=== PATIENT | female | born 1980 | race Caucasian/White ===

== ENCOUNTER 2019-04-21 09:08 | Emergency (ER) | payer BC, OTHER ==
[2019-04-21 10:28] VITALS: BP 107/78
--- NOTE | 2019-04-21 10:31 | UC ---
Dental HPI - HPI Summary HPI Summary: 39 y/o female presents to the urgent care c/o Upper left side of mouth tooth pain since yesterday. Pt reports Hx of root canals in the same side. She has a gold crown on that side w/ mild swelling. Pt states pain is 8/10 w/ chewing. She has been taking Ibuprofen 600mg PO, Last dose taken last night. She also has taken Gabapentin for her Neuropathy to alleviate pain. Pt has appt w/ [facility] in 3 weeks. Pt denies fever, REYNOSO, trismus, SOB, chest pain,abdominal pain, N/V/d. - History of Current Complaint Chief Complaint: UCGI Stated Complaint: ORAL COMPLAINT Time Seen by Provider: 04/21/19 10:15 Hx Obtained From: Patient Hx Last Menstrual Period: 2016 Onset/Duration: Gradual Onset - left upper side dental pain, Lasting Days - 1 day, Still Present, Worse Since - this morning Severity: Moderate Pain Intensity: 8 Pain Scale Used: 0-10 Numeric Aggravating Factor(s): Chewing Alleviating Factor(s): OTC Meds - Ibuprofen 60mg , last dose taken last night Related History: Previous Dental Care on Same Tooth - Allergies/Home Medications Allergies/Adverse Reactions: Allergies Allergy/AdvReac Type Severity Reaction Status Date / Time letrozole Allergy Severe migraine Verified 04/21/19 10:16 Fish , mushrooms Allergy Swelling Uncoded 06/30/16 12:33 Of Face,Lips,& Throat Home Medications: Home Medications Gabapentin CAP(*) [Neurontin 300 CAP(*)] 300 mg PO TID 04/21/19 [History Confirmed 04/21/19] Ibuprofen TAB* [Motrin TAB* 600 MG] 600 mg PO Q4H PRN 04/21/19 [History Confirmed 04/21/19] Lupron Under Skin 1 dose SUBCUT SEE INSTRUCTIONS 04/21/19 [History] Ora-Gel 1 dose .SEE ORDER Q8HR 04/21/19 [History] Tamoxifen TAB* [Nolvadex 10 MG*] 20 mg PO DAILY 04/21/19 [History Confirmed 02/01] Varenicline Tartrate [Chantix] 1 mg PO DAILY 04/21/19 [History Confirmed ] PMH/Surg Hx/FS Hx/Imm Hx Previously Healthy: Yes Other Neurological History: Neuropathy - Surgical History Surgical History: Yes Surgery Procedure, Year, and Place: - Family History Known Family History: Positive: Cardiac Disease, Hypertension Negative: Blood Disorder - Social History Occupation: Employed Full-time Lives: With Family Alcohol Use: Rare Substance Use Type: None Substance Use Comment - Amount & Last Used: gabapentin Smoking Status (MU): Former Smoker Type: Cigarettes Amount Used/How Often: 1 PPD Household Exposure Type: Cigarettes Review of Systems All Other Systems Reviewed And Are Negative: Yes Constitutional: Positive: Negative Skin: Positive: Negative Eyes: Positive: Negative ENT: Positive: Dental Pain - left upper molar pain since yesterday Respiratory: Positive: Negative Cardiovascular: Positive: Negative Gastrointestinal: Positive: Negative Genitourinary: Positive: Negative Motor: Positive: Negative Neurovascular: Positive: Negative Musculoskeletal: Positive: Negative Neurological: Positive: Negative Psychological: Positive: Negative Is Patient Immunocompromised?: No Physical Exam - Summary Physical Exam Summary: Vital Signs Reviewed: Yes General: Well-Appearing, Well-Nourished female sitting in the examining table w /o any respiratory or pain distress Eyes: Positive: Conjunctiva Clear - PERRLA, EOMI, ENT: Positive: Normal ENT inspection, Hearing grossly normal, Pharynx normal, TMs normal - B/L external ear canals clear,. Negative: Tonsillar swelling, Tonsillar exudate, Trismus Dental: Positive: Gross Decay/Caries on molars #14 and 15 w/ gingival swelling and erythema, tender to percussion. involves tissue surrounding theses molars, w / positive anterior Cervical Lymphadenopathy. Neck: Positive: Supple Respiratory: Positive: Chest non-tender, Lungs clear, Normal breath sounds, No respiratory distress Cardiovascular: Positive: RRR, No Murmur, Pulses Normal, Brisk Capillary Refill Abdomen Description: Positive: Nontender, No Organomegaly, Soft. Negative: CVA Tenderness (R), CVA Tenderness (L) Bowel Sounds: Positive: Present Musculoskeletal: Positive: Strength Intact, ROM Intact, No Edema Neurological Exam: Normal Psychological Exam: Normal Skin Exam: Normal Triage Information Reviewed: Yes Vital Signs: Initial Vital Signs Temp 98.8 F 04/21/19 10:22 Pulse 74 04/21/19 10:22 Resp 24 04/21/19 10:22 BP 107/78 04/21/19 10:22 Pulse Ox 99 04/21/19 10:22 Dental Complaint Course/Dx - Course Course Of Treatment: 39 y/o female presents to the urgent care c/o Upper left side of mouth tooth pain since yesterday. Pt reports Hx of root canals in the same side. She has a gold crown on that side w/ mild swelling. Pt states pain is 8/10 w/ chewing. She has been taking Ibuprofen 600mg PO, Last dose taken last night. She also has taken Gabapentin for her Neuropathy to alleviate pain. Pt has appt aishwarya/ [facility] in 3 weeks. Pt denies fever, REYNOSO, trismus, SOB, chest pain,abdominal pain, N/V/d. Hx obtained. Pt with dental abscess around molar #17 -15 , Molar #15 w/ a deleon crown on examination. Pt given viscous Lidocaine at the clinic to alleviate symptoms by the nurse. Pt tolerated well medication and pain decrease. Pt Rx Amoxicillin PO, Viscous Lidocaine and Ibuprofen PO as directed below. Pt strongly advised to f/u with Dentist as soon as possible for further evaluation and treatment. D/C instructions explained. Pt understood and agreed with plan of care. - Differential Dx/Diagnosis Differential Diagnosis/Dx: Dental Abscess, Dental Caries, Fractured Tooth, Odontogenic Pain, Peridontic Disease, Peritonsillar Abcess Provider Diagnosis: Dental abscess Discharge ED - Sign-Out/Discharge Documenting (check all that apply): Patient Departure - D/C home All imaging exams completed and their final reports reviewed: No Studies - Discharge Plan Condition: Stable Disposition: HOME Prescriptions: Amoxicillin PO (*) [Amoxicillin 500 MG CAP*] 500 mg PO TID #30 cap Ibuprofen TAB* [Motrin TAB* 800 MG] 800 mg PO Q6H PRN #30 tab PRN Reason: dental pain Lidocaine 2% VISCOUS* [Xylocaine 2% Viscous*] 15 ml SWISH SPIT Q6H PRN #1 btl PRN Reason: dental pain Patient Education Materials: Dental Abscess (ED) Referrals: Liliana Lopez NP [Primary Care Provider] - 2 Days Additional Instructions: 1-Please take full course of antibiotics to avoid resistance. Take Yogurt w/ probiotics or Culturelle to protect your GI system 2- Take Ibuprofen PO as instructed after meals to alleviate pain and swelling. Take the Viscous lidocaine as directed to alleviate dental pain too 3- F/u with your Dentist or Dental List provided as soon as possible for further treatment. 4- If symptoms do not improve or worsen please return to the urgent care or f/u with your PCP for further evaluation and treatment - Billing Disposition and Condition Condition: STABLE Disposition: Home
[2019-04-21] MEDS ORDERED: Ibuprofen TAB* 400 MG PO ONE (10:38)
[2019-04-21] MEDS ORDERED: Lidocaine 2% VISCOUS* 15 ML UDC SWISH SPIT ONE (10:38)
== END 2019-04-21 11:15 | disposition home or self-care (01) ==
LOC: UCCORT 09:08
DX: K04.7 Periapical abscess without sinus (principal); Z87.891 Personal history of nicotine dependence; G62.9 Polyneuropathy, unspecified
CPT/HCPCS: 99212; A9270-GY; G0463